=== PATIENT | male | born 1975 | race Asian ===

== ENCOUNTER 2020-11-26 11:56 | Emergency (ER) | payer BC ==
[~2020-11-26] VITALS: Ht 170.2 cm; Wt 72.6 kg
[~2020-11-26 11:56] MED LIST: AMLO-213 PO; BENZ200C53 PO; INSU100I19 SQ; IRBE300T19 PO; MONT10TA22 PO; PANT40TA2 PO
[2020-11-26] MEDS ORDERED: MORPHINE SULFATE INJ 4 MG/ML DISP.SYRIN ONE (12:22)
[2020-11-26] MEDS ORDERED: ONDANSETRON HCL/PF 4 MG/2 ML VIAL ONE (12:22)
--- NOTE | 2020-11-26 12:27 | NUR ---
THE PATIENT IS TAKEN TO CT
[2020-11-26] MEDS ORDERED: ONDANSETRON HCL/PF - ER 4 MG/2 ML VIAL IV ONE (12:30)
[2020-11-26] MEDS ORDERED: IV NS 0.9% 1,000 ML BAG IV ONE (12:30)
[2020-11-26] MEDS ORDERED: MORPHINE SULFATE INJ 2 MG/ML DISP.SYRIN IV ONE (12:30)
[2020-11-26 12:36] LABS: BASOPHILS # (AUTO) 0.1 K/uL (0.0-0.2); BASOPHILS % (AUTO) 0.8 % (0.0-2.0); EOSINOPHILS % (AUTO) 2.4 % (0.0-6.0); HEMATOCRIT 38 % (39-51); HEMOGLOBIN 12.7 g/dL (13.5-17.5); LYMPHOCYTES # (AUTO) 1.9 K/uL (0.8-4.8); LYMPHOCYTES % (AUTO) 22.4 % (20.0-44.0); MEAN CORPUSCULAR HGB CONC 33 g/dl (31.0-36.0); MEAN CORPUSCULAR VOLUME 87 fL (80-96); MONOCYTES # (AUTO) 0.4 K/uL (0.1-1.30); MONOCYTES % (AUTO) 4.4 % (2.0-12.0); PLATELET COUNT (AUTO) 280 K/uL (150-450); RED BLOOD CELL COUNT(AUTO) 4.41 MIL/uL (4.5-6.0); WHITE BLOOD COUNT (AUTO) 8.6 K/uL (4.3-11.0)
--- NOTE | 2020-11-26 12:39 | NUR ---
THE PATIENT IS BACK FROM CT
--- NOTE | 2020-11-26 12:40 | NUR ---
The patient bibs for c/o abd pain since this morning, +nausea,-diarrhea, 10/10 pain scale. Abdomen soft and non-distended. Will continue to monitor the patient.
[2020-11-26 13:02] LABS: BILIRUBIN,DIRECT 0.1 mg/dL (0.0-0.2); BILIRUBIN,TOTAL 0.4 mg/dL (0.2-1.0); CALCIUM, SERUM 8.9 mg/dL (8.5-10.1); POTASSIUM 4.4 mmol/L (3.5-5.1); TOTAL PROTEIN, SERUM 7.6 g/dL (6.4-8.2)
--- NOTE | 2020-11-26 13:07 | NUR ---
RATES ABDOMINAL PAIN 8/[address] AGUILAR AWARE. WAITING FOR ORDERS.
[2020-11-26] MEDS ORDERED: KETOROLAC TROMETHAMINE 15 MG/ML VIAL ONE (13:23)
[2020-11-26] MEDS ORDERED: FENTANYL PF 100MCG/2ML AMPUL ONE (13:24)
[2020-11-26] MEDS ORDERED: KETOROLAC TROMETHAMINE INJ 30 MG/ML VIAL IV ONE (13:30)
[2020-11-26] MEDS ORDERED: FENTANYL PF 100MCG/2ML AMPUL IV ONE (13:30)
--- NOTE | 2020-11-26 13:48 | NUR ---
URINE COLLECTED AND SENT TO THE LAB
[2020-11-26] MEDS ORDERED: ONDA4TAB5 PO (14:30)
[2020-11-26] MEDS ORDERED: TAMS-12 PO (14:30)
[2020-11-26] MEDS ORDERED: IBUP-1955 PO (14:30)
[2020-11-26] MEDS ORDERED: HYDR-4303 PO (14:30)
[2020-11-26 14:46] LABS: BILIRUBIN,URINE NEGATIVE (NEGATIVE); COLOR,URINE YELLOW (YELLOW); LEUKOCYTE ESTERASE ,URINE NEGATIVE (NEGATIVE); NITRITE, URINE NEGATIVE (NEGATIVE); PROTEIN,URINE 30 mg/dl (NEGATIVE); UGLUCOSE >=1000 mg/dL (NEGATIVE); UROBILINOGEN,URINE 0.2 EU/dL (0.2)
[2020-11-26 14:59] LABS: BACTERIA,URINE None seen /HPF (None Seen); RBC,URINE TOO NUMEROUS TO COUN /HPF (0-2); SQUAMOUS EPITHELIAL CELL,UR 0-2 /HPF (None Seen); WBC,URINE 0-2 /HPF (0-3)
[2020-11-26 15:34] VITALS: BP 124/67
--- NOTE | 2020-11-26 15:34 | NUR ---
Patient discharged to home in stable condition. Written and verbal after care instructions given. Patient verbalizes understanding of instruction.
== END 2020-11-26 15:35 | disposition home or self-care (01) ==
LOC: ER 11:56
DX: N13.2 Hydronephrosis with renal and ureteral calculous obstruction (principal); I12.9 Hypertensive chronic kidney disease with stage 1 through stage 4 chronic kidney disease, or unspecified chronic kidney disease; E11.22 Type 2 diabetes mellitus with diabetic chronic kidney disease; N18.9 Chronic kidney disease, unspecified; Z79.4 Long term (current) use of insulin; Z79.899 Other long term (current) drug therapy
CPT/HCPCS: 36415; 74176; 80048; 80076; 81001; 82962; 83690; 85025; 96361; 96374; 96375; 99284; J1885; J2270; J2405 ×2; J3010; J7030